=== PATIENT | male | born 1990 | race Caucasian/White ===

== ENCOUNTER 2020-12-31 22:51 | Emergency (ER) | payer OTHER ==
[~2020-12-31] VITALS: Ht 200.7 cm; Wt 97.5 kg
--- NOTE | 2020-12-31 23:06 | Emergency Room Report ---
History of Present Illness General Chief Complaint: Laceration Source: Patient Present Illness HPI Patient is a 30-year-old male presents for scalp laceration. Patient denies any loss of consciousness. Reports having up-to-date tetanus vaccine. States injury occurred approximately 30 minutes prior to arrival. Patient stated that he had struck the top of his head on a plastic DVD player. Denies any prior medical history. Allergies: Coded Allergies: NO KNOWN ALLERGIES (Verified Allergy, Unknown, 12/31/20) COVID-19 Screening Contact w/high risk pt: No Experienced COVID-19 symptoms?: No COVID-19 Testing performed [employer] V[employer]OR: No Patient History Reviewed Nursing Documentation: PMH: Agreed; PSxH: Agreed Review of Systems All Other Systems: negative except mentioned in HPI Physical Exam Vital Signs Date Time Temp Pulse Resp B/P (MAP) Pulse Ox O2 Delivery O2 Flow Rate FiO2 12/31/20 22:55 98.6 58 18 147/64 (91) 100 Room Air Sp02 EP Interpretation: reviewed, normal General Appearance: normal inspection, well appearing, no apparent distress, alert, GCS 15 Head: atraumatic ENT: normal ENT inspection, hearing grossly normal, normal voice Neck: normal inspection, full range of motion, supple, no bony tend Respiratory: normal inspection, no respiratory distress, no retraction, no wheezing Cardiovascular #1: regular rate, rhythm, no edema Gastrointestinal: normal inspection, no guarding, no hernia Genitourinary: no CVA tenderness Musculoskeletal: normal inspection, normal range of motion Neurologic: alert, motor strength/tone normal, oriented x3, responsive, speech normal, normal inspection Psychiatric: normal inspection, judgement/insight normal, mood/affect normal Skin: laceration - 2 cm vertex scalp laceration linear Procedures Laceration/Wound Repair Laceration/Wound Repair : Consent: Emergent Wound Location: head Wound's Depth, Shape: superficial Wound Length (cm): 2 Irrigated w/ Saline (ccs): 10 Volume Anesthetic (ccs): 10 Wound Debrided: None Wound Repaired With: valeria - 3 Patient Tolerated: Well Complications: None Medical Decision Making Diagnostic Impression: Primary Impression: Laceration ER Course Patient presented for laceration. Differential diagnosis include was not limited to foreign body, head injury, fracture among others. Patient has a benign exam and does not appear to require any imaging or laboratory testing at this time. Patient's laceration appears to be superficial. Patient wound was irrigated. Closed with skin valeria. Patient will be discharged home. Patient was advised wound care and follow-up for staple remover in 7 to 10 days. This medical record is generated with [employer] die sizer software. There may be some die sizer discrepancies related to use of this software Last Vital Signs Date Time Temp Pulse Resp B/P (MAP) Pulse Ox O2 Delivery O2 Flow Rate FiO2 12/31/20 22:55 98.6 58 18 147/64 (91) 100 Room Air Status: improved Disposition: HOME, SELF-CARE Condition: Stable Frank Long MD Dec 31, 2020 23:06
--- NOTE | 2020-12-31 23:06 | NUR ---
Pte came to ER ambulatory c/o head laceration. New orders received from EDP and carried out. All procedures were explain to the patient . Patient verbalized understanding. Safety and comfort measures taken: bed set in low position, frequent rounds, call light within reach. Will continue monitoring the patient during the sift.
[2020-12-31] MEDS ORDERED: Lidocaine 1% 10mg/ml/Epi 0.005mg/ml 10ml INJ ONE (23:13)
[2020-12-31] MEDS ORDERED: Bacitracin Oint UD TOPIC ONE (23:15)
[2020-12-31] MEDS ORDERED: Lidocaine 1%/ 10mg/ml/EPI 0.01mg/ml 20ml INJ ONE (23:15)
[2020-12-31 23:27] VITALS: BP 130/78
--- NOTE | 2020-12-31 23:29 | NUR ---
Patient was discharge home as EDP ordered. All vital signs were taken within normal range. Patient . instructions were given to the patient . Patient verbalized understanding. patient left the hospital in stable condition .
== END 2020-12-31 23:31 | disposition home or self-care (01) ==
LOC: EMR 23:10
DX: S01.01XA Laceration without foreign body of scalp, initial encounter (principal); W22.8XXA Striking against or struck by other objects, initial encounter; Y93.9 Activity, unspecified; Y92.9 Unspecified place or not applicable
CPT/HCPCS: 99282